=== PATIENT | male | born 1990 | race American Indian/Alaskan Native ===

== ENCOUNTER 2019-04-10 07:43 | Emergency (ER) | payer SELFPAY ==
[2019-04-10] MEDS ORDERED: ONDANSETRON 4 MG ODT TAB PO ONE (08:11)
[2019-04-10 08:53] LABS: Basophils % (Auto) 0.2 % (0.0-1.8); Eosinophils # (Auto) 0.1 K/mm3 (0.0-0.4); Eosinophils % (Auto) 1.3 % (0.0-4.3); Hematocrit 42.3 % (35.5-45.6); Hemoglobin 13.9 gm/dl (11.8-15.2); Lymphocytes # (Auto) 1.5 K/mm3 (1.2-5.4); Lymphocytes % (Auto) 20.9 % (13.4-35.0); Mean Corpuscular HGB Conc 33 % (32-34); Mean Corpuscular Volume 88 fl (84-94); Monocytes # (Auto) 0.8 K/mm3 (0.0-0.8); Monocytes % (Auto) 10.8 % (0.0-7.3); Platelet Count 308 K/mm3 (140-440); Red Blood Count 4.83 M/mm3 (3.65-5.03); Red Cell Distribution Width 15.4 % (13.2-15.2)
--- NOTE | 2019-04-10 09:00 | Emergency Department Report ---
ED N/V/D HPI - General Chief complaint: Abdominal Pain Stated complaint: STOMACH PAIN Time Seen by Provider: 04/10/19 08:02 Source: patient Mode of arrival: Ambulatory Limitations: No Limitations - History of Present Illness Initial comments: Patient is a 28-year-old -Polish male with past medical history of HIV who is presenting with 3 days of lower abdominal discomfort and diarrhea. Patient states he is watery stools. Patient states he has noticed some blood in the stools as well as well as yellowish mucus. Patient denies difficulty ur inating. Patient denies cough cold congestion fevers or chills. MD complaint: nausea, diarrhea - Related Data Previous Rx's Medication Instructions Recorded Last Taken Type Azithromycin [Zithromax Z-[place]] 500 mg PO ONCE #1 tablet 02/08/13 Unknown Rx Fluticasone Propionate [Flonase] 16 gm NS DAILY #1 spray.susp 02/08/13 Unknown Rx Prednisone [predniSONE 5 mg (6-Day 5 mg PO QDAY #1 tab.ds.pk 02/08/13 Unknown Rx Pack, 21 Tabs)] Ciprofloxacin HCl [Ciprofloxacin 500 mg PO Q12HR #14 tab 04/10/19 Unknown Rx TAB] Dicyclomine [Bentyl] 20 mg PO QID #10 tablet 04/10/19 Unknown Rx Ondansetron [Zofran Odt] 4 mg PO Q8HR #10 tab.rapdis 04/10/19 Unknown Rx metroNIDAZOLE [Flagyl] 500 mg PO Q12HR #14 tab 04/10/19 Unknown Rx traMADol [Ultram] 50 mg PO Q6HR PRN #12 tablet 04/10/19 Unknown Rx Allergies Allergy/AdvReac Type Severity Reaction Status Date / Time No Known Allergies Allergy Unverified 02/08/13 12:01 ED Review of Systems ROS: Stated complaint: STOMACH PAIN Other details as noted in HPI Comment: All other systems reviewed and negative ED Past Medical Hx - Past Medical History Previous Medical History?: Yes Additional medical history: "possible HIV" - Surgical History Past Surgical History?: Yes Additional Surgical History: tubes in left ear - Social History Smoking Status: Never Smoker Substance Use Type: Marijuana - Medications Home Medications: Home Medications Medication Instructions Recorded Confirmed Last Taken Type Azithromycin [Zithromax Z-[place]] 500 mg PO ONCE #1 tablet 02/08/13 Unknown Rx Fluticasone Propionate [Flonase] 16 gm NS DAILY #1 spray.susp 02/08/13 Unknown Rx Prednisone [predniSONE 5 mg (6-Day 5 mg PO QDAY #1 tab.ds.pk 02/08/13 Unknown Rx Pack, 21 Tabs)] Ciprofloxacin HCl [Ciprofloxacin 500 mg PO Q12HR #14 tab 04/10/19 Unknown Rx TAB] Dicyclomine [Bentyl] 20 mg PO QID #10 tablet 04/10/19 Unknown Rx Ondansetron [Zofran Odt] 4 mg PO Q8HR #10 tab.rapdis 04/10/19 Unknown Rx metroNIDAZOLE [Flagyl] 500 mg PO Q12HR #14 tab 04/10/19 Unknown Rx traMADol [Ultram] 50 mg PO Q6HR PRN #12 tablet 04/10/19 Unknown Rx ED Physical Exam - General Limitations: No Limitations General appearance: alert, in no apparent distress - Head Head exam: Present: atraumatic, normocephalic - Eye Eye exam: Present: normal appearance, PERRL, EOMI - ENT ENT exam: Present: mucous membranes moist - Neck Neck exam: Present: normal inspection - Respiratory Respiratory exam: Present: normal lung sounds bilaterally. Absent: respiratory distress, wheezes, rales, rhonchi - Cardiovascular Cardiovascular Exam: Present: regular rate, normal rhythm. Absent: systolic murmur, diastolic murmur, rubs, gallop - GI/Abdominal GI/Abdominal exam: Present: soft, tenderness (mild lower abdominal tenderness to palpation), normal bowel sounds. Absent: distended, guarding, rebound, rigid, organomegaly - Rectal Rectal exam: Present: deferred - Extremities Exam Extremities exam: Present: normal inspection - Back Exam Back exam: Present: normal inspection - Neurological Exam Neurological exam: Present: alert, oriented X3 - Psychiatric Psychiatric exam: Present: normal affect, normal mood - Skin Skin exam: Present: warm, dry, intact, normal color. Absent: rash ED Course Vital Signs 04/10/19 07:45 Temperature 98.1 F Pulse Rate 104 H Respiratory 16 Rate Blood Pressure 140/86 O2 Sat by Pulse 96 Oximetry ED Medical Decision Making - Lab Data Result diagrams: 04/10/19 08:22 04/10/19 08:22 - Radiology Data CT ABDOMEN AND PELVIS WITH CONTRAST HISTORY: bloody diarrhea, nausea and vomiting, loss of appetite COMPARISON: None. TECHNIQUE: Axial CT images were obtained through the abdomen and pelvis after 100 cc of Omnipaque 300 intravenously. Sagittal and coronal reformatted images. All CT scans at this [facility] ation are performed using CT dose reduction for ALARA by means of automated exposure control. FINDINGS: CT ABDOMEN: Lung Bases: Clear. Liver: No significant abnormality. Biliary: No significant abnormality. Spleen: No significant abnormality. Unenlarged. Pancreas: No significant abnormality. Adrenals: No significant abnormality. Kidneys: No significant abnormality. Lymphatics: No lymphadenopathy. Vasculature: No significant abnormality. Bowel/Peritoneum: There is no evidence for obstruction. The colon is collapsed but there is suggestion of mild circumferential thickening of the distal colon which could represent a mild colitis. No free fluid, pneumatosis or free air. The appendix is not confidently identified. CT PELVIS: : No significant abnormality. Osseous Structures: No significant abnormality. Additional Findings: None IMPRESSION: Findings suggestive of a nonspecific distal colitis. Signer Name: Shorty Roe Jr, MD Signed: 04/10/2019 10:42 AM Workstation Name: [id number] - Medical Decision Making Patient is a 28-year-old male who is presenting with 3 days of diarrhea and some lower abdominal crampiness. CT scan is consistent with colitis. Patient is not having any active vomiting and his pain is minimal. Patient is a good candidate for outpatient therapy. Patient started on Cipro Flagyl and be discharged home with medications for symptomatic relief. Critical care attestation.: If time is entered above; I have spent that time in minutes in the direct care of this critically ill patient, excluding procedure time. ED Disposition Clinical Impression: Acute colitis Diarrhea Qualifiers: Diarrhea type: unspecified type Qualified Code(s): R19.7 - Diarrhea, unspe cified Disposition: DC-01 TO HOME OR SELFCARE Is pt being admited?: No Does the pt Need Aspirin: No Condition: Stable Instructions: Infectious Colitis (ED) Referrals: PRIMARY MD G[facility] [Primary Care Provider] - 3-5 Days [facility] [Provider Group] - 3-5 Days Time of Disposition: 11:00
[2019-04-10 09:08] LABS: BUN/Creatinine Ratio 8; Blood Urea Nitrogen 10 mg/dL (9-20); Calcium 9.7 mg/dL (8.4-10.2); Hemolysis Index 14
--- NOTE | 2019-04-10 10:46 | Cat Scan Report ---
CT ABDOMEN AND PELVIS WITH CONTRAST HISTORY: bloody diarrhea, nausea and vomiting, loss of appetite COMPARISON: None. TECHNIQUE: Axial CT images were obtained through the abdomen and pelvis after 100 cc of Omnipaque 300 intravenously. Sagittal and coronal reformatted images. All CT scans at this location are performed using CT dose reduction for ALARA by means of automated exposure control. FINDINGS: CT ABDOMEN: Lung Bases: Clear. Liver: No significant abnormality. Biliary: No significant abnormality. Spleen: No significant abnormality. Unenlarged. Pancreas: No significant abnormality. Adrenals: No significant abnormality. Kidneys: No significant abnormality. Lymphatics: No lymphadenopathy. Vasculature: No significant abnormality. Bowel/Peritoneum: There is no evidence for obstruction. The colon is collapsed but there is suggestio n of mild circumferential thickening of the distal colon which could represent a mild colitis. No mariaelena e fluid, pneumatosis or free air. The appendix is not confidently identified. CT PELVIS: : No significant abnormality. Osseous Structures: No significant abnormality. Additional Findings: None IMPRESSION: Findings suggestive of a nonspecific distal colitis. Signer Name: Shorty Roe Jr, MD Signed: 04/10/2019 10:42 AM Workstation Name: [id number]
[2019-04-10 11:26] VITALS: BP 121/76
== END 2019-04-10 11:19 | disposition home or self-care (01) ==
LOC: ED 07:43
DX: K51.90 Ulcerative colitis, unspecified, without complications (principal); R19.7 Diarrhea, unspecified; F12.10 Cannabis abuse, uncomplicated; Z21 Asymptomatic human immunodeficiency virus [HIV] infection status; Z98.890 Other specified postprocedural states; Z79.899 Other long term (current) drug therapy
CPT/HCPCS: 36415; 74177; 80048; 85025; 99284; Q9967; Q0162